=== PATIENT | male | born 1990 | race Caucasian/White ===

== ENCOUNTER 2023-11-16 17:30 | Emergency (ER) | payer OTHER ==
[~2023-11-16] VITALS: Ht 167.6 cm; Wt 70.0 kg
[2023-11-16 17:38] VITALS: O2SAT 100
[2023-11-16] MEDS ORDERED: TETANUS, DIPHTHERIA, PERTUSSIS VAC/PF 0.5ML (>10YR OLD) IM ONE ×2 (19:00→22:30)
[2023-11-16] MEDS ORDERED: BACITRACIN ZINC OINT UDPKT TOP NR (20:45)
[2023-11-16] MEDS ORDERED: LIDOCAINE HCL/PF 1% 10 MG/ML 5ML VIAL INFIL NR (20:45)
[2023-11-16] MEDS ORDERED: LIDOCAINE HCL/PF 1% 10 MG/ML 5ML VIAL INFIL ONE (20:45)
[2023-11-16] MEDS ORDERED: BACITRACIN ZINC OINT UDPKT TOP ONE (20:45)
[2023-11-16] MEDS ORDERED: ACETAMINOPHEN 325MG TABLET PO ONE (23:15)
[2023-11-16 23:50] VITALS: BP 132/65; PULSE 69; RESP 18; TEMP 98.3
== END 2023-11-17 00:04 | disposition home or self-care (01) ==
LOC: ER 17:30
DX: R55 Syncope and collapse (principal); W18.39XA Other fall on same level, initial encounter; Y93.89 Activity, other specified; Y92.89 Other specified places as the place of occurrence of the external cause; Y99.8 Other external cause status
CPT/HCPCS: 99284; 70450; 71045; 70486; 72125; 12013; J3490